=== PATIENT | male | born 1980 ===

== ENCOUNTER 2021-06-06 11:55 | Emergency (ER) | payer MEDICAID ==
--- NOTE | 2021-06-06 12:12 | EDM.PDOC ---
ED HPI GENERAL MEDICAL PROBLEM - General Chief Complaint: Flank Pain Stated Complaint: HISTORY OFKIDNEY DISEASE/ W LAW ENFORCEMENT Time Seen by Provider: 06/06/21 12:09 Source of Information: Reports: Patient History Limitations: Reports: No Limitations - History of Present Illness INITIAL COMMENTS - FREE TEXT/NARRATIVE: 40 y/o M c/o R flank pain for 3 days. Pt states hx of polycystic ovarian disease. He reports blood in urine. Pt is in long-term at this time. No daily meds. Allergies to PCN. Denies rosenberg, vision prob, fever, cough, chills, drugs, etoh, cp, db, abd pn, pelvic pn, ext pain. Right Flank Pain Score (Numeric/FACES): 10 - Related Data Allergies Allergy/AdvReac Type Severity Reaction Status Date / Time Penicillins Allergy Cannot Verified 06/06/21 12:04 Remember Home Meds: Home Meds . [No Known Home Meds] 03/31/15 [History] ED ROS GENERAL - Review of Systems Review Of Systems: Comprehensive ROS is negative, except as noted in HPI. ED EXAM, RENAL/ - Physical Exam Exam: See Below Exam Limited By: No Limitations General Appearance: Alert, No Apparent Distress Throat/Mouth: Normal Inspection, Normal Lips, Normal Teeth, Normal Gums, Normal Oropharynx, Normal Voice, No Airway Compromise Head: Atraumatic, Normocephalic Neck: Normal Inspection, Supple, Non-Tender, Full Range of Motion Respiratory/Chest: No Respiratory Distress, Lungs Clear, Normal Breath Sounds, N o Accessory Muscle Use, Chest Non-Tender Cardiovascular: Normal Peripheral Pulses, Regular Rate, Rhythm, No Edema, No Gallop, No JVD, No Murmur, No Rub (Male) Exam: Deferred Rectal (Males) Exam: Deferred Back Exam: Normal Inspection, Full Range of Motion, CVA Tenderness (R) Extremities: Normal Inspection, Normal Range of Motion, Non-Tender, Normal Capillary Refill, No Pedal Edema Neurological: Alert, Oriented, CN II-XII Intact, Normal Cognition, Normal Gait, Normal Reflexes, No Motor/Sensory Deficits Psychiatric: Normal Affect, Normal Mood Skin Exam: Warm, Dry, Intact Course - Vital Signs Last Recorded V/S: Last Vital Signs Temp 97.6 F 06/06/21 12:04 Pulse 82 06/06/21 12:04 Resp 20 06/06/21 12:04 BP 108/71 06/06/21 12:04 Pulse Ox 99 06/06/21 12:04 - Orders/Labs/Meds Orders: Active Orders 24 hr Category Date Time Status CULTURE URINE [RM] Stat Lab 06/06/21 12:45 Received Labs: Laboratory Tests 06/06/21 06/06/21 06/06/21 Range/Units 12:09 12:09 12:45 WBC 10.6 H (5.0-10.0) 10^3/uL RBC 5.23 (4.6-6.2) 10^6/uL Hgb 15.9 (14.0-18.0) g/dL Hct 47.7 (40.0-54.0) % MCV 91.2 D (80-100) fL MCH 30.4 (27.0-34.0) pg MCHC 33.3 (33.0-35.0) g/dL Plt Count 409 (150-450) 10^3/uL Neut % (Auto) 68.2 (42.2-75.2) % Lymph % (Auto) 22.4 (20.5-50.1) % [place] % (Auto) 6.5 (2-8) % Eos % (Auto) 2.3 (1.0-3.0) % Baso % (Auto) 0.6 (0.0-1.0) % Sodium 136 (136-145) mmol/L Potassium 4.7 (3.5-5.1) mmol/L Chloride 100 (98-107) mmol/L Carbon Dioxide 27 (21-32) mmol/L Anion Gap 13.7 H (7-13) mEq/L BUN 12 (7-18) mg/dL Creatinine 1.08 (0.70-1.30) mg/dL Est Cr Clr Drug Dosing 83.69 mL/min Estimated GFR (MDRD) > 60 BUN/Creatinine Ratio 11.1 (No establ ref range) Glucose 103 H (70-99) mg/dL Calcium 9.2 (8.5-10.1) mg/dL Total Bilirubin 0.8 (0.2-1.0) mg/dL AST 24 (15-37) U/L ALT 43 (16-63) U/L Alkaline Phosphatase 132 H (46-116) U/L Total Protein 8.1 (6.4-8.2) g/dL Albumin 3.8 (3.4-5.0) g/dL Globulin 4.3 Albumin/Globulin Ratio 0.9 Urine Color Yellow (YELLOW) Urine Appearance Clear (CLEAR) Urine pH 7.5 (5.0-9.0) Ur Specific [place] 1.020 (1.005-1.030) Urine Protein Negative (NEGATIVE) Urine Glucose (UA) Negative (NEGATIVE) Urine Ketones Negative (NEGATIVE) Urine Occult Blood Negative (NEGATIVE) Urine Nitrite Negative (NEGATIVE) Urine Bilirubin Negative (NEGATIVE) Urine Urobilinogen 0.2 (0.2-1.0) mg/dL Ur Leukocyte Esterase Trace H (NEGATIVE) Urine RBC 0-5 (0-5) /HPF Urine WBC 5-10 H (0-5/HPF) /HPF Ur Epithelial Cells Rare (NOT SEEN) /HPF Urine Bacteria Rare (0-FEW/HPF) /HPF Urine Mucus Few H (NOT SEEN) /LPF Meds: Medications Discontinued Medications Generic Name Dose Route Start Last Admin Trade Name Fernieq PRN Reason Stop Dose Admin Iopamidol 100 ml 06/06/21 12:47 06/06/21 13:06 Iopamidol 612 Mg/Ml 100 Ml Bottle IVPUSH 06/06/21 12:48 100 ml ONETIME ONE Administration - Re-Assessments/Exams Free Text/Narrative Re-Assessment/Exam: 06/06/21 14:43 I discussed the labs and exam with the pt and explained the findings. No descernable cause of the flank pain could be determined on the CT. The CT showed no acute findings. The urine sample shows a small amount of leukocyte esterase and some WBC. I will cover the pt for a UTI with cipro 06/06/21 14:45 Departure - Departure Time of Disposition: 14:45 Disposition: Home, Self-Care 01 Clinical Impression: UTI, Urinary tract infectious disease - Discharge Information *PRESCRIPTION DRUG MONITORING PROGRAM REVIEWED*: Not Applicable *COPY OF PRESCRIPTION DRUG MONITORING REPORT IN PATIENT AMANDA: Not Applicable Instructions: Urinary Tract Infection, Adult, [id number] Forms: ED Department Discharge Additional Instructions: RX: Cipro Drink plenty of fluids to maintain hydration. Sepsis Event Note (ED) - Focused Exam Vital Signs: Vital Signs Temp Pulse Resp BP Pulse Ox 06/06/21 12:04 97.6 F 82 20 108/71 99 - My Orders Last 24 Hours: My Active Orders 06/06/21 12:45 CULTURE URINE [RM] Stat - Assessment/Plan Last 24 Hours: My Active Orders 06/06/21 12:45 CULTURE URINE [RM] Stat
[2021-06-06 12:32] LABS: ANION GAP 13.7 mEq/L (7-13); CHLORIDE,CL 100 mmol/L (98-107); SODIUM,NA 136 mmol/L (136-145)
[2021-06-06] MEDS ORDERED: Iopamidol 612 MG/ML 100 ML Bottle IVPUSH ONE (12:47)
--- NOTE | 2021-06-06 14:37 | CT ---
PROCEDURE INFORMATION: Exam: CT Abdomen And Pelvis Without And With Contrast Exam date and time: 06/06/2021 1:01 PM Age: 40 years old Clinical indication: Condition or disease; Kidney or ureter condition; Cyst of kidney; Prior surgery; Surgery date: 6+ months; Surgery type: Appendix removed; Patient HX: History of polycystic kidney disease and hep c; Additional info: R flank pain TECHNIQUE: Imaging protocol: Computed tomography of the abdomen and pelvis without and with contrast. Radiation optimization: All CT scans at this facility use at least one of these dose optimization techniques: automated exposure control; mA and/or kV adjustment per patient size (includes targeted exams where dose is matched to clinical indication); or iterative reconstruction. Contrast material: ISOVUE 300; Contrast volume: 100 ml; Contrast route: INTRAVENOUS (IV); COMPARISON: CT Chest Abdomen Pelvis w Cont 03/31/2015 12:33 AM FINDINGS: Lungs: The lung bases are clear. There are no pleural effusions. Liver: The liver is normal in size and attenuation. There are a couple of tiny subcentimeter hypodensities in the parenchyma of the liver, likely tiny benign cysts or hemangiomata. Gallbladder and bile ducts: The gallbladder is not distended. There is no biliary ductal dilatation. Pancreas: The pancreas is within normal limits. Spleen: The spleen is normal in size. Adrenal glands: The adrenal glands are normal in appearance. Kidneys and ureters: The kidneys are symmetric in size. There is no hydronephrosis. There is a tiny 2 mm nonobstructing calculus in the lower pole of the left kidney. No calculi are identified in the right kidney nor along the course of either ureter. There is a 10 mm benign cyst in the posterior cortex of the right kidney. No renal masses are identified. There is prompt symmetric excretion of contrast from both kidneys. The ureters are normal in caliber. No intraluminal filling defects are identified. Stomach and bowel: The stomach is not distended. No pathologically dilated small bowel loops are identified. There is no evidence of colonic wall thickening or pericolonic inflammation. There is a rather large volume of stool in the colon. Appendix: The appendix is surgically absent. Intraperitoneal space: There is no free air or free fluid in the abdomen or pelvis. Vasculature: The abdominal aorta is normal in caliber. The celiac axis, SMA and CATHERINE are patent. Lymph nodes: No pathologically enlarged lymph nodes are identified in the abdomen or pelvis. Urinary bladder: The urinary bladder appears normal. Reproductive: The prostate gland and seminal vesicles are unremarkable. Bones/joints: There is normal alignment throughout the visualized portion of the spine. No acute fractures or aggressive bone lesions are identified. Soft tissues: There is a small left inguinal hernia which is fat containing only. IMPRESSION: 1. No cause for right flank pain is identified. Specifically, there is no evidence of hydronephrosis and no renal or ureteral calculi are identified on the right. 2. There is a nonobstructing calculus in the lower pole of the left kidney. 3. There is a 10 mm benign cyst in the right kidney. 4. Overall unremarkable CT appearance of the liver. 5. Increased stool in the colon. Consider constipation. COMMENTS: Consistent with the [employer]'s Incidental Findings Committee white paper (J Am Koby Radiol 2018): Any incidental renal lesion less than 1 cm or classified as too small to characterize, or any incidental cystic renal lesion characterized as simple-appearing, is likely benign. No follow-up imaging is recommended for these lesions per consensus recommendations based on imaging criteria.
== END 2021-06-06 14:50 | disposition home or self-care (01) ==
LOC: DL.ED 11:55
DX: N39.0 Urinary tract infection, site not specified (principal); Z88.0 Allergy status to penicillin
CPT/HCPCS: 36415; 74178; 80053; 81001; 85025; 87086; 99284; Q9967